=== PATIENT | female | born 1935 | race Caucasian/White ===

== ENCOUNTER → 2018-01-03 07:20 | Outpatient (CLI) | payer BC ==
[2016-05-30 17:14] VITALS: BMI 28.3
[~2018-01-03 07:20] MED LIST: ACETAMINOPHEN325 MG PO; BENADRYL50 MG PO; CARAFATE1 G/10 ML PO; ISOSORBIDE DINI30 MG PO; LIPITOR40 MG PO; PHAZYME 125 MG125 MG PO; PREDNISONE20 MG PO; PRILOSEC20 MG PO; TOPROL XL25 MG PO; ULTRAM50 MG PO; [UNRECOGNIZED DRUG - REMARK]
== END | disposition home or self-care (01) ==
LOC: D.RAD 07:20
DX: R13.10 Dysphagia, unspecified (principal)

== ENCOUNTER 2018-01-23 11:20 | Day surgery (SDC) | payer BC ==
[~2018-01-23] VITALS: Ht 165.1 cm; Wt 73.6 kg
--- NOTE | ~2018-01-23 | OP ---
PATIENT NAME: KERI FAGAN MEDICAL RECORD: [id number] :35 LOCATION:[facility] ADMISSION DATE: SURGEON: JOSE INFANTE MD DATE OF OPERATION: 01/23/2018 PROCEDURE: EGD. REFERRING PHYSICIAN: Dr. Grupo Delgado. INDICATIONS: Ms. Fagan is a delightful 82-year-old woman with a history of achalasia who underwent a Heller myotomy, Fabby fundoplication, and laparoscopic repair of hernias in the past. She last had an EGD 05/30/2016 that showed a mild stricture at the GE junction that was dilated with a balloon to a 57-Azeri, small residual hiatal hernia, evidence of gastroparesis (retained food in the stomach) and normal-appearing duodenum. She has been asymptomatic with regards to dysphagia until recently and her dysphagia has recurred. She takes omeprazole 40 mg daily. She presents for outpatient EGD. PREMEDICATIONS: Total IV anesthesia. INSTRUMENT: Olympus video gastroscope. PROCEDURE AND FINDINGS: After receiving informed consent, Ms. Fagan' posterior pharynx was anesthetized with Cetacaine spray. She was placed in left lateral decubitus position and sedated as per anesthesia. After achieving adequate level of sedation, gastroscope was introduced per orally and advanced into the duodenum without difficulty. In the distal esophagus, there was a large pocket (likely a large "pocket") likely a sequelae of surgery and a short esophageal stricture in the distal esophagus continuous with a GE junction was a large friable ulcer. The gastroscope was passed through the stricture. With passage of the gastroscope, the stricture was dilated. There was a large amount of retained food in the stomach obscuring 50% of the lumen. Pylorus was patent and competent. There was mild erythema in the antrum. Duodenal mucosa was without erythema or ulcers, appeared normal through the second portion. Gastroscope was then withdrawn. Ms. Fagan tolerated the procedure well, no immediate complications. ASSESSMENT: 1. Large ulcer in the distal esophagus, precluding esophageal dilatation. 2. Short esophageal stricture, dilated with passage of the gastroscope. 3. Retained food in stomach consistent with gastroparesis. 4. Normal-appearing duodenum. RECOMMENDATIONS: 1. Recommend more aggressive antireflux medications to include increasing omeprazole to 40 mg p.o. daily and sucralfate liquid 3 times a day. 2. Allowing for adequate healing of the distal esophagus, recommend followup EGD in 2-3 months with esophageal dilatation. 3. Small frequent meals. 4. Recommend a clear liquid diet prior to the day before the EGD. TRANSINT:[id number] Voice Confirmation ID: [id number] DOCUMENT ID: [id number] OPERATIVE REPORT [id number] KERI FAGAN TERRI MD at 1621 CC: GRUPO DELGADO MD [id number] DICTATION DATE: 01/23/18 1442 CONCRETE ANALYST: 01/23/18 1457 [facility] 01/23/[address] [facility] [address] [place] [address]
[~2018-01-23 11:20] MED LIST changes: -ISOSORBIDE DINI30 MG PO; -LIPITOR40 MG PO
[2018-01-23 12:04] VITALS: BP 127/66; Ht 165.1 cm; Wt 73.6 kg
[2018-01-23 13:19] LABS: BASOPHILS 0.5 % (0-2); EOSINOPHILS 2.3 % (0-7); HEMATOCRIT 38.6 % (36.0-48.0); HEMOGLOBIN 13.1 g/dL (12-16); IMMATURE GRANULOCYTES 0.2 % (0-5); LYMPHOCYTES 35.8 % (15-50); MCH 32.3 pg (26.0-34.0); MCHC 33.9 g/dL (31.0-37.0); MCV 95.1 fL (80.0-100.0); MEAN PLATELET VOLUME 10.4 fL (7.4-10.4); MONOCYTES 15.4 % (2-11); NEUTROPHILS 45.8 % (40-80); RBC 4.06 10x6/uL (4.00-5.40); WBC 5.6 10x3/uL (4.8-10.8)
[2018-01-23 13:28] LABS: PLATELET COUNT 339 10x3/uL (130-400)
[2018-01-23 13:47] LABS: CALC OSMOLALITY 274 mosm/kg (275-300); CALCIUM 9.9 mg/dL (8.5-10.1); CARBON DIOXIDE 26.1 mmol/L (21.0-32.0); CHLORIDE - SERUM 104 mmol/L (98-107); CREATININE - SERUM 0.4 mg/dL (0.6-1.3); GLUCOSE 94 mg/dL (74-106); POTASSIUM - SERUM 5.4 mmol/L (3.5-5.1); SODIUM 138 mmol/L (136-145); UREA NITROGEN 11 mg/dL (7-18); eGFR NON AFRICAN AMERICAN > 90 mL/min (90-120)
== END 2018-01-23 15:40 | disposition home or self-care (01) ==
LOC: D.OPS 11:20
PROVIDERS: Anesthesiology
DX: R13.10 Dysphagia, unspecified (principal); R11.2 Nausea with vomiting, unspecified; I25.10 Atherosclerotic heart disease of native coronary artery without angina pectoris; Z95.5 Presence of coronary angioplasty implant and graft; K22.10 Ulcer of esophagus without bleeding; K31.84 Gastroparesis; K22.2 Esophageal obstruction; Z01.812 Encounter for preprocedural laboratory examination

== ENCOUNTER 2018-01-31 08:50 | Observation (INO) | payer MEDICARE, BC ==
[~2018-01-31] VITALS: Ht 165.1 cm; Wt 70.5 kg
[2018-01-31 09:27] LABS: BASOPHILS 0.4 % (0-2); EOSINOPHILS 3.5 % (0-7); HEMATOCRIT 41.6 % (36.0-48.0); HEMOGLOBIN 13.9 g/dL (12-16); IMMATURE GRANULOCYTES 0.1 % (0-5); LYMPHOCYTES 32.2 % (15-50); MCH 31.8 pg (26.0-34.0); MCHC 33.4 g/dL (31.0-37.0); MCV 95.2 fL (80.0-100.0); MEAN PLATELET VOLUME 8.8 fL (7.4-10.4); MONOCYTES 9.9 % (2-11); NEUTROPHILS 53.9 % (40-80); RBC 4.37 10x6/uL (4.00-5.40); RDW 12.8 % (11.5-14.5); WBC 7.7 10x3/uL (4.8-10.8)
[2018-01-31 09:28] LABS: PLATELET COUNT 258 10x3/uL (130-400)
[2018-01-31 09:48] LABS: ALBUMIN 3.4 g/dL (3.4-5.0); ALKALINE PHOSPHATASE 86 U/L (46-116); ALT (SGPT) 18 U/L (10-68); CALC OSMOLALITY 281 mosm/kg (275-300); CALCIUM 9.8 mg/dL (8.5-10.1); CARBON DIOXIDE 29.5 mmol/L (21.0-32.0); CHLORIDE - SERUM 105 mmol/L (98-107); CREATININE - SERUM 0.8 mg/dL (0.6-1.3); GLUCOSE 109 mg/dL (74-106); PROTEIN - SERUM 6.7 g/dL (6.4-8.2); SODIUM 140 mmol/L (136-145); TROPONIN-I < 0.017 ng/mL (0.000-0.060); UREA NITROGEN 19 mg/dL (7-18); eGFR NON AFRICAN AMERICAN 73 mL/min (90-120)
[2018-01-31 12:58] VITALS: BP 118/72
[2018-01-31 15:19] VITALS: BP 118/72; BMI 25.8
[2018-01-31 16:52] VITALS: BP 116/66
[2018-01-31] MEDS ORDERED: ISOSORBIDE DINI30 MG PO (20:11)
[2018-01-31] MEDS ORDERED: LIPITOR40 MG PO (20:12)
[2018-01-31 21:32] VITALS: BP 133/64
[2018-01-31 22:23] VITALS: Ht 165.1 cm; Wt 70.5 kg
[2018-01-31 23:19] LABS: CKMB 0.4 U/L (0.0-3.6); CREATINE KINASE 26 UL (21-215); TROPONIN-I < 0.017 ng/mL (0.000-0.060)
[2018-01-31 23:24] LABS: MAGNESIUM - SERUM 1.7 mg/dL (1.8-2.4)
[2018-01-31 23:52] LABS: ERYTHROCYTE SEDIMENTATION RATE 19 mm/hr (0-30)
[2018-02-01 04:35] LABS: BASOPHILS 0.5 % (0-2); HEMATOCRIT 37.5 % (36.0-48.0); HEMOGLOBIN 12.4 g/dL (12-16); IMMATURE GRANULOCYTES 0.2 % (0-5); LYMPHOCYTES 36.4 % (15-50); MCH 31.4 pg (26.0-34.0); MCHC 33.1 g/dL (31.0-37.0); MCV 94.9 fL (80.0-100.0); MEAN PLATELET VOLUME 8.8 fL (7.4-10.4); MONOCYTES 14.1 % (2-11); NEUTROPHILS 43.8 % (40-80); PLATELET COUNT 249 10x3/uL (130-400); RBC 3.95 10x6/uL (4.00-5.40); RDW 12.8 % (11.5-14.5); WBC 5.8 10x3/uL (4.8-10.8)
[2018-02-01 04:56] VITALS: BP 137/63
[2018-02-01 05:04] LABS: ALBUMIN 2.6 g/dL (3.4-5.0); ALKALINE PHOSPHATASE 61 U/L (46-116); BILIRUBIN - TOTAL 0.35 mg/dL (0.2-1.3); CALCIUM 8.9 mg/dL (8.5-10.1); CARBON DIOXIDE 29.4 mmol/L (21.0-32.0); CHLORIDE - SERUM 107 mmol/L (98-107); CKMB 0.1 U/L (0.0-3.6); CREATINE KINASE 18 UL (21-215); CREATININE - SERUM 0.6 mg/dL (0.6-1.3); GLUCOSE 92 mg/dL (74-106); POTASSIUM - SERUM 3.9 mmol/L (3.5-5.1); PROTEIN - SERUM 5.5 g/dL (6.4-8.2); SODIUM 140 mmol/L (136-145); eGFR NON AFRICAN AMERICAN > 90 mL/min (90-120)
[2018-02-01 05:10] LABS: ALT (SGPT) 11 U/L (10-68); CALC OSMOLALITY 278 mosm/kg (275-300); TROPONIN-I < 0.017 ng/mL (0.000-0.060); UREA NITROGEN 13 mg/dL (7-18)
[2018-02-01 08:59] VITALS: BP 125/74
[2018-02-01 10:55] LABS: CREATINE KINASE 26 UL (21-215)
[2018-02-01 10:56] LABS: TROPONIN-I < 0.017 ng/mL (0.000-0.060)
== END 2018-02-01 12:09 | disposition home or self-care (01) ==
LOC: D.ER 08:50 → OBSVTIME 10:12 → D.EDHOLD 10:12 → D.MS 10:12
PROVIDERS: Emergency Medicine; Family Medicine; Internal Medicine Nephrology
DX: R55 Syncope and collapse (principal); I95.89 Other hypotension; K22.4 Dyskinesia of esophagus; K22.0 Achalasia of cardia; K22.10 Ulcer of esophagus without bleeding; I10 Essential (primary) hypertension; E46 Unspecified protein-calorie malnutrition; E83.42 Hypomagnesemia; R63.6 Underweight

== ENCOUNTER 2018-10-10 20:22 | Emergency (ER) | payer BC ==
[~2018-10-10] VITALS: Ht 165.1 cm; Wt 72.7 kg
[~2018-10-10 20:22] MED LIST changes: +ISOSORBIDE DINI30 MG PO; +LIPITOR40 MG PO
[2018-10-10 20:38] VITALS: Ht 165.1 cm; Wt 72.7 kg
[2018-10-10] MEDS ORDERED: AUGMENTIN 875-11 TAB PO (21:51)
[2018-10-10] MEDS ORDERED: FLUTICASONE PRO16 GM NASAL (21:51)
[2018-10-10 22:15] VITALS: BP 111/84
== END 2018-10-10 22:15 | disposition home or self-care (01) ==
LOC: D.ER 20:22
DX: R00.1 Bradycardia, unspecified (principal); J01.90 Acute sinusitis, unspecified

== ENCOUNTER 2019-06-23 08:06 | Day surgery (SDC) | payer BC ==
[~2019-06-23] VITALS: Ht 165.1 cm; Wt 72.3 kg
[~2019-06-23 08:06] MED LIST changes: +AUGMENTIN 875-11 TAB PO; +FLUTICASONE PRO16 GM NASAL
[2019-06-23 09:11] LABS: BASOPHILS 0.5 % (0-2); EOSINOPHILS 5.6 % (0-7); HEMATOCRIT 43.9 % (36.0-48.0); HEMOGLOBIN 14.9 g/dL (12-16); LYMPHOCYTES 37.7 % (15-50); MCH 33.1 pg (26.0-34.0); MCHC 33.9 g/dL (31.0-37.0); MCV 97.6 fL (80.0-100.0); MEAN PLATELET VOLUME 8.7 fL (7.4-10.4); MONOCYTES 9.9 % (2-11); NEUTROPHILS 46.3 % (40-80); PLATELET COUNT 237 10x3/uL (130-400); RDW 12.6 % (11.5-14.5)
[2019-06-23 09:19] LABS: CALC OSMOLALITY 280 mosm/kg (275-300); CALCIUM 9.8 mg/dL (8.5-10.1); CARBON DIOXIDE 30.2 mmol/L (21.0-32.0); CHLORIDE - SERUM 106 mmol/L (98-107); CREATININE - SERUM 0.6 mg/dL (0.6-1.3); GLUCOSE 103 mg/dL (74-106); POTASSIUM - SERUM 4.3 mmol/L (3.5-5.1); SODIUM 141 mmol/L (136-145); UREA NITROGEN 13 mg/dL (7-18); eGFR NON AFRICAN AMERICAN > 90 mL/min (90-120)
[2019-06-23] MEDS ORDERED: BAYER CHEWABLE81 MG PO (09:49)
[2019-06-23 10:05] VITALS: BP 158/56; Ht 165.1 cm; Wt 72.3 kg
--- NOTE | 2019-06-23 14:14 | NUR ---
1405 DR. HOSKINS ROUNDS WITH PT AND SPOUSE, GIVES RESULTS. 1410 UP TO [place], [place] DIET SERVED.
--- NOTE | 2019-06-23 17:43 | HP ---
PATIENT: KERI REYES MEDICAL RECORD: [id number] ACCOUNT: [id number] LOCATION:[facility] : 35 ADMISSION DATE: 06/23/19 PCP: BROOKE DELGADO MD HISTORY AND PHYSICAL EXAMINATION CHIEF COMPLAINT: Difficulty swallowing. HISTORY OF PRESENT ILLNESS: The patient has had a history of achalasia. She is here for EGD with balloon dilation. The risks, possible complications, alternatives to the procedure were explained to the patient. She elects to proceed. ALLERGIES: MORPHINE, CODEINE WELL SHELLFISH. HOME MEDICINES: Aspirin, Prilosec, metoprolol. SOCIAL HISTORY: Nonsmoker. PAST MEDICAL AND SURGICAL HISTORY: Syncope, cardiac rhythm problems, acute myocardial infarction, history of coronary stents times 2, coronary artery disease, history of skin cancer surgery, history of hysterectomy, history of knee surgery, history of hiatal hernia surgery, history of laparoscopic esophageal myotomy. PHYSICAL EXAMINATION: GENERAL: The patient does not appear acutely ill. She does not appear chronically ill. VITAL SIGNS: Reviewed. EARS: External ears appear normal. EYES: Extraocular movements are intact. NECK: Trachea is midline. CHEST: No intercostal retractions. PULMONARY: Nonlabored. No stridor. ABDOMEN: Nontender. IMPRESSION: Recurrent dysphagia, esophageal dilation has helped in the past. PLAN: EGD with esophageal dilation. TRANSINT:[id number] Voice Confirmation ID: [id number] DOCUMENT ID: [id number] ABISAI HOSKINS MD at 1743 CC: JOSE INFANTE MD, MARVA NEWTON M.D. and BROOKE DELGADO [id number] DICTATION DATE: 06/23/19 1310 HAIR OR BEAUTY SALON MANAGER: 06/23/19 1434 [facility] [place] 06/23/19 [place] [id number]
--- NOTE | 2019-06-24 09:56 | OP ---
PATIENT NAME: KERI REYES MEDICAL RECORD: [id number] :35 LOCATION:D.OPS ADMISSION DATE: SURGEON: SHUBHAM HOSKINS MD DATE OF OPERATION: 06/23/2019 PREOPERATIVE DIAGNOSES: 1. Recurrent dysphagia 2. History of achalasia. POSTOPERATIVE DIAGNOSES: 1. Recurrent dysphagia 2. History of achalasia. 3. Large distal esophageal diverticulum. 4. Stenotic esophagogastric junction. 5. Likely intact fundoplication. PROCEDURE: 1. Esophagogastroduodenoscopy with antral biopsies. 2. Esophageal dilation to 36-Wallisian with a fvcprpb-xpi-hlopfehy balloon. SURGEON: Shubham Hoskins MD PROBATION OFFICER: None. BLOOD LOSS: Minimal. ANESTHESIA: IV sedation. COMPLICATIONS: None. The risks, possible complications, and alternatives to the procedure were explained to the patient. She elects to proceed. The discussion specifically included, but was not limited to, bleeding requiring emergency reoperation, infection, endoscopic perforation and the probable need for additional dilations in the future. OPERATIVE COURSE: The patient was conveyed to the GI lab electively on 06/23/2019. IV sedation was induced by the anesthesia staff. A bite block was inserted. A gastroscope was inserted into the mouth. It was advanced easily into the hypopharynx. The esophagus was easily intubated as were the stomach and duodenum. Upon withdrawal, retroflexed, and angulus views were obtained. Antral biopsies were obtained. I withdrew into the cardia of the stomach. I advanced a zqsjnmd-nqw-frzvkruy balloon. I then the dilated the distal esophageal stricture to 36-Wallisian times 3 minutes. The gastroscope and balloon dilator were then removed. I then readvanced the gastroscope. It was much easier to pass it through the esophagogastric junction and into the stomach. There appeared to have been no full thickness injury to the esophagus. The gastroscope was then withdrawn under direct vision. I will plan to see the patient in my office in 2-3 weeks. She can undergo these dilations as needed and my suspicion is that she will have to undergo more of these in the future. OPERATIVE REPORT [id number] KERI REYES TRANSINT:[id number] Voice Confirmation ID: [id number] DOCUMENT ID: [id number] SHUBHAM HOSKINS MD at 0956 CC: [id number] DICTATION DATE: 06/23/19 1403 CADD DRAFTER: 06/23/192054 [facility] [place] 06/23/19 [facility] [address] [place] [id number]
== END 2019-06-23 14:45 | disposition home or self-care (01) ==
LOC: D.OPS 08:06
PROVIDERS: Anesthesiology; ATTEND Surgery
DX: R13.10 Dysphagia, unspecified (principal); K22.5 Diverticulum of esophagus, acquired; K22.2 Esophageal obstruction